=== PATIENT | female | born 2000 | race Caucasian/White ===

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

== ENCOUNTER 2024-08-23 01:09 | Emergency (ER) | payer SELFPAY ==
[~2024-08-23] VITALS: Ht 162.6 cm; Wt 45.0 kg
[2024-08-23 01:11] VITALS: O2SAT 99
[2024-08-23] MEDS: NALOXONE HCL 0.4MG/ML 1ML VIAL IV PRN (01:35)
[2024-08-23] MEDS: SODIUM CHLORIDE 0.9% 1,000 ML IV ONE (01:38)
[2024-08-23 02:12] VITALS: BP 100/60; PULSE 99; RESP 22; O2SAT 100
[2024-08-23 02:16] LABS: BASOPHILS % 0.5 % (0.0-2.0); EOSINOPHILS % 0.9 % (0.0-5.0); HEMATOCRIT. 36.5 % (36.0-48.0); HEMOGLOBIN. 12.3 g/dL (12.0-16.0); LYMPHOCYTES % 34.2 % (20.0-50.0); MEAN CORPUSCULAR HEMOGLOBIN 30.4 pg (28.0-32.0); MEAN CORPUSCULAR HGB CONC 33.6 g/dL (31.0-37.0); MEAN CORPUSCULAR VOLUME 90.6 fL (81.0-99.0); MONOCYTES % 5.3 % (2.0-8.0); NEUTROPHILS % 59.1 % (40.0-76.0); PLATELET 252 x1000/uL (130-400); RED BLOOD CELL COUNT 4.03 mill/uL (4.2-5.4); RED CELL DISTRIBUTION WIDTH 13.4 % (11.6-14.6); WHITE BLOOD COUNT 7.3 x1000/uL (4.5-11.0)
[2024-08-23 02:19] LABS: CHLORIDE 111 mEq/L (98-107); POTASSIUM 3.4 mEq/L (3.5-5.1); SODIUM 146 mEq/L (136-145)
[2024-08-23 02:20] LABS: CARBON DIOXIDE 28 mEq/L (21-32)
[2024-08-23 02:26] LABS: GLUCOSE 112 mg/dL (70-105); UREA NITROGEN BLOOD 9 mg/dL (9-23)
[2024-08-23 02:27] LABS: ACETAMINOPHEN < 2 ug/mL (10-30)
[2024-08-23 02:28] LABS: CREATINE KINASE 117 IU/L (34-145)
[2024-08-23 02:29] LABS: HCG SCREEN NEGATIVE
[2024-08-23 02:35] LABS: ETHANOL BLOOD 288 mg/dL (<10)
[2024-08-23 03:10] LABS: *AMPHETAMINES SCREEN URINE NEGATIVE (NEGATIVE); *BENZODIAZEPINES SCREEN URINE NEGATIVE (NEGATIVE)
[2024-08-23 03:11] LABS: *BARBITURATES SCREEN URINE NEGATIVE (NEGATIVE); *COCAINE SCREEN URINE NEGATIVE (NEGATIVE); CANNABINOID URINE SCREEN PRESUMPTIVE POSITIVE (NEGATIVE); ECSTASY MDMA SCREEN URINE NEGATIVE (NEGATIVE); METHADONE URINE SCREEN NEGATIVE (NEGATIVE); OPIATES URINE SCREEN NEGATIVE (NEGATIVE); PHENCYCLIDINE URINE SCREEN NEGATIVE (NEGATIVE)
== END 2024-08-23 02:25 | disposition home or self-care (01) ==
LOC: ER 01:09
DX: F10.129 Alcohol abuse with intoxication, unspecified (principal); Z88.0 Allergy status to penicillin; Y90.8 Blood alcohol level of 240 mg/100 ml or more
CPT/HCPCS: 80305; 80048; 80307; 80329; 80320; 82550; 84703; 85025; 36415; 71045; 93005; 96360; 99285; J2310; J7030; Z7610 ×3; G0480

== ENCOUNTER 2025-11-12 17:00 | Emergency (ER) | payer BC, MEDICAID ==
[~2025-11-12] VITALS: Ht 162.6 cm; Wt 55.0 kg
[2025-11-12 17:02] VITALS: O2SAT 100
[2025-11-12 18:37] LABS: CLARITY URINE CLEAR (CLEAR); COLOR URINE YELLOW (YELLOW); GLUCOSE URINE NEGATIVE (NEGATIVE); KETONES URINE 3+ (NEGATIVE); LEUKOCYTE ESTERASE URINE NEGATIVE (NEGATIVE); NITRITE URINE NEGATIVE (NEGATIVE); OCCULT BLOOD URINE NEGATIVE (NEGATIVE); PH URINE 5.5 (4.5-8.0); PROTEIN URINE TRACE (NEGATIVE); SPECIFIC GRAVITY URINE 1.018 (1.005-1.030); UROBILINOGEN URINE 0.2 E.U./dL (0.2-1.0)
[2025-11-12] MEDS: SODIUM CHLORIDE 0.9% 1,000 ML IV ONE (18:45)
[2025-11-12] MEDS: ONDANSETRON HCL 4MG/2ML INJ IV ONE (18:45)
[2025-11-12] MEDS: FAMOTIDINE 20MG/2ML VIAL IV ONE (18:50)
[2025-11-12 18:52] LABS: BACTERIA URINE TRACE; RBC URINE 0-2 /hpf (0-2); SQUAMOUS EPITHELIAL CELL URINE 1+ /lpf (RARE/1+); WBC URINE 0-2 /hpf (0-2)
[2025-11-12 19:17] LABS: HEMATOCRIT. 41.1 % (36.0-48.0); HEMOGLOBIN. 13.7 g/dL (12.0-16.0); MEAN PLATELET VOLUME 8.9 fl (7.4-10.4); PLATELET 285 x1000/uL (130-400); RED BLOOD CELL COUNT 4.54 mill/uL (4.2-5.4); RED CELL DISTRIBUTION WIDTH 13.6 % (11.6-14.6)
[2025-11-12 19:32] LABS: CREATININE 0.9 mg/dL (0.6-1.0); UREA NITROGEN BLOOD 13 mg/dL (9-23)
[2025-11-12 19:33] LABS: PROTEIN TOTAL 8.5 g/dL (6.0-8.3)
[2025-11-12 19:34] LABS: ASPARTATE AMINOTRANSFERASE 48 IU/L (<34); BILIRUBIN DIRECT 0.2 mg/dL (<=3.0); BILIRUBIN TOTAL 0.5 mg/dL (0.1-1.0)
[2025-11-12 19:39] LABS: HCG SCREEN NEGATIVE
[2025-11-12 19:41] LABS: LYMPHOCYTES % MANUAL 8.0 % (20.0-60.0); MONOCYTES % MANUAL 4.0 % (2.0-8.0); NEUTROPHILS % MANUAL 88.0 % (45.0-75.0); PLATELET ESTIMATE NORMAL
[2025-11-12] MEDS ORDERED: FAMO-135 MT (20:01)
[2025-11-12] MEDS ORDERED: ONDA4TAB50 MT (20:01)
[2025-11-12 20:18] VITALS: BP 123/72; PULSE 99; RESP 16; TEMP 36.8; O2SAT 100
== END 2025-11-12 20:19 | disposition home or self-care (01) ==
LOC: ER 17:00
DX: K29.20 Alcoholic gastritis without bleeding (principal); D72.829 Elevated white blood cell count, unspecified; Z88.0 Allergy status to penicillin; Z88.2 Allergy status to sulfonamides
CPT/HCPCS: 80076; 80048; 81003; 84703; 83690; 85025; 36415; 96361; 96374; 96375; 99284; J1308; J2405; J7030; Z7610 ×2